=== PATIENT | male | born 1950 | race Caucasian/White ===

== ENCOUNTER → 2016-06-26 | Outpatient (CLI) | payer MEDICARE ==
[~2016-06-26] MED LIST: ALLO300T2 PO; ALPR0.25 PO; AMLO10TA4 PO; ASPI-345 PO; ATOR10TA PO; AZIT250T81 PO; CEFD300C9 PO; CRS350T PO; ERGO400C PO; FLX20C PO; HCT25T PO; LORA1TAB PO; METF500T4; MULT-55 PO; NF-TORA10 PO; NIAC500T9 PO; NS.65NA45; OMEG1CAP61 PO; OMG1KC PO; ONDA4TAB8 PO; ONDAN4ODT PO; OXYC-272 PO; OXYC1TAB87 PO; PRED5SOL7 PO; PRV20T PO; SODI325T PO; SPRN25T PO; TAMS-8 PO; TAMS0.4C2; TICA90TA PO
--- NOTE | 2016-06-26 09:56 | Diagnostic Imaging Report ---
INDICATION: Nontraumatic back pain. COMPARISON: Chest radiograph performed concurrently. FINDINGS: Thoracic spine is normal in alignment. No compression fracture. There are large anterior flowing osteophytes with maintenance of the disc spaces throughout the mid to lower thoracic spine indicative of diffuse idiopathic skeletal hyperostosis (DISH). IMPRESSION: 1. No compression fracture in the thoracic spine. 2. Changes of diffuse idiopathic skeletal hyperostosis (DISH). Dictated by: Dictated on workstation # [id number]
--- NOTE | 2016-06-26 10:04 | Diagnostic Imaging Report ---
INDICATION: Right-sided back pain. COMPARISON: Acute abdominal series of 05/10/2016. FINDINGS: Normal lung volume. No pulmonary mass or consolidation. No pleural effusion or pneumothorax. Cardiac silhouette is normal in size and configuration. Normal pulmonary vasculature. Changes of diffuse idiopathic skeletal hyperostosis in the spine. IMPRESSION: 1. Negative chest radiograph. Dictated by: Dictated on workstation # [id number]
== END ==
LOC: RAD 08:46
PROVIDERS: ATTEND Specialist
DX: M54.5 Low back pain (principal); M48.14 Ankylosing hyperostosis [Forestier], thoracic region
CPT/HCPCS: 71020; 72072

== ENCOUNTER → 2016-07-26 | Outpatient (CLI) | payer MEDICARE | LOC: RAD 12:47 | PROVIDERS: ATTEND Orthopaedic Surgery Foot and Ankle Surgery | DX: M25.572 Pain in left ankle and joints of left foot (principal); M79.672 Pain in left foot | CPT/HCPCS: 73700; 76376 ==

== ENCOUNTER → 2016-08-08 | Outpatient (CLI) | payer MEDICARE | LOC: RAD 08:47 | PROVIDERS: ATTEND Specialist | DX: M85.80 Other specified disorders of bone density and structure, unspecified site (principal); Z13.820 Encounter for screening for osteoporosis | CPT/HCPCS: 77080 ==

== ENCOUNTER 2016-09-22 05:47 | Emergency (ER) | payer MEDICARE ==
[~2016-09-22] VITALS: Ht 190.5 cm; Wt 122.7 kg
[~2016-09-22 05:47] MED LIST changes: -LORA1TAB PO; -TICA90TA PO
--- OUTSIDE RECORDS SUMMARY | 2016-09-22 05:52 | XMS REPORT | Continuity of Care Document ---
Author Author [facility] Organization [facility] Address Unknown Phone Unavailable Care Team Providers Care Link Trainer Maintenance Man Name Role Phone Marizol Barry PCP Unavailable Source Comments Some departments are not documenting in the electronic medical record. If you do not see the information that you expected, contact Release of Information in the Health Information Management department at [phone] for further assistance in locating additional records.[facility] Active Allergies and Adverse Reactions Not on File Current Medications Not on file Active Problems Problem Noted Date Headache 08/04/2007 Abnormality of gait 08/04/2007 Social History Tobacco Use Types Packs/Day Years Used Date Never Assessed Last Filed Vital Signs Vital Sign Reading Time Taken Blood Pressure 140/77 08/04/2007 9:26 AM BUTCHER ALL ROUND Pulse 57 08/04/2007 9:26 AM BUTCHER [employer] ROUND Temperature 36.2 C (97.2 F) 08/04/2007 9:26 AM BUTCHER [employer] ROUND Respiratory Rate - - Height 1.905 m (6' 3") 08/04/2007 9:26 AM BUTCHER [employer] ROUND Weight 117.935 kg (260 lb) 08/04/2007 9:26 AM BUTCHER [employer] ROUND Body Mass Index 32.5 08/04/2007 9:26 AM BUTCHER [employer] ROUND Oxygen Saturation 95% 08/04/2007 9:26 AM BUTCHER [employer] ROUND Plan of Care Health Maintenance Due Date Last Done Comments Physical (Comprehensive) 1957 Exam Pertussis Vaccine 1960 Tetanus Vaccine 1966 Shingles Vaccine 2009 Prevnar/Pneumovax (#1) 2014 Influenza Vaccine 02/21/2017 Colorectal Cancer 07/14/2017 07/14/2007 Screening Hepatitis C Screening Completed 07/15/2007 Results from Last 3 Months Not on file
--- OUTSIDE RECORDS SUMMARY | 2016-09-22 05:53 | XMS REPORT | Continuity of Care Document ---
Author Author [facility] Organization [facility] Address Unknown Phone Unavailable Care Team Providers Care Chef Kitchen Manager Name Role Phone Marizol Barry PCP Unavailable Source Comments Some departments are not documenting in the electronic medical record. If you do not see the information that you expected, contact Release of Information in the Health Information Management department at [phone] for further assistance in locating additional records.[facility] Active Allergies and Adverse Reactions Not on File Current Medications Not on file Active Problems Problem Noted Date Headache 08/04/2007 Abnormality of gait 08/04/2007 Social History Tobacco Use Types Packs/Day Years Used Date Never Assessed Last Filed Vital Signs Vital Sign Reading Time Taken Blood Pressure 140/77 08/04/2007 9:26 AM DATA COLLECTION ASSOCIATE Pulse 57 08/04/2007 9:26 AM DATA COLLECTION ASSOCIATE Temperature 36.2 C (97.2 F) 08/04/2007 9:26 AM DATA COLLECTION ASSOCIATE Respiratory Rate - - Height 1.905 m (6' 3") 08/04/2007 9:26 AM DATA COLLECTION ASSOCIATE Weight 117.935 kg (260 lb) 08/04/2007 9:26 AM DATA COLLECTION ASSOCIATE Body Mass Index 32.5 08/04/2007 9:26 AM DATA COLLECTION ASSOCIATE Oxygen Saturation 95% 08/04/2007 9:26 AM DATA COLLECTION ASSOCIATE Plan of Care Health Maintenance Due Date Last Done Comments Physical (Comprehensive) 1957 Exam Pertussis Vaccine 1960 Tetanus Vaccine 1966 Shingles Vaccine 2009 Prevnar/Pneumovax (#1) 2014 Influenza Vaccine 02/21/2017 Colorectal Cancer 07/14/2017 07/14/2007 Screening Hepatitis C Screening Completed 07/15/2007 Results from Last 3 Months Not on file
[2016-09-22] MEDS ORDERED: TICA90TA PO (06:01)
[2016-09-22] MEDS ORDERED: KETOROLAC 30 MG/ML (TORADOL) 1 ML VIAL IV ONE (06:05)
[2016-09-22 06:11] LABS: BASOPHILS % (AUTO) 1 % (0-2); EOSINOPHILS # (AUTO) 0.5 10^3uL; EOSINOPHILS % (AUTO) 6 % (0-4); MEAN CORPUSCULAR HEMOGLOBIN 28.8 PG (26.0-34.0); MEAN CORPUSCULAR HGB CONC 34.4 g/dL (31.0-37.0); MEAN CORPUSCULAR VOLUME 84 FL (80-100); MEAN PLATELET VOLUME 9.4 FL (6.0-9.5); MONOCYTES # (AUTO) 0.7 X10^3; MONOCYTES % (AUTO) 10 % (3-11); NEUTROPHILS % (AUTO) 55 % (51-67); PLATELET COUNT 242 10^3uL (150-450); WHITE BLOOD COUNT 7.18 10^3uL (4.0-11.0)
[2016-09-22] MEDS ORDERED: SODIUM CHLORIDE FLUSH 10 ML SYR IV PRN (06:15)
[2016-09-22 06:21] LABS: ALBUMIN 4.2 g/dL (3.4-5.0); ALKALINE PHOSPHATASE 109 U/L (38-126); ANION GAP 18.2 MEQ/L (3-15); BUN/CREATININE RATIO 15 (10-20); CALCULATED IONIZED CALCIUM 3.9 mg/dL (3.8-4.6)
--- NOTE | 2016-09-22 06:33 | NUR ---
Pt states that the Toradol has not really helped that much, pt does appear to be much calmer than on arrival, and appears to be more comfortable.
[2016-09-22] MEDS ORDERED: morphine INJ 4 MG/ML 1 ML SYRINGE IV PRN (06:35)
[2016-09-22 06:53] LABS: D-DIMER* < 215 ng/mL (0-500)
--- NOTE | 2016-09-22 07:06 | NUR ---
gave morphine which has not helped pain, appears like spasms, comes and goes, pain a 0 until spasm hits, then it is a 6
[2016-09-22] MEDS ORDERED: ORPHENADRINE 60 MG/2 ML (NORFLEX) AMP IV ONE (07:10)
[2016-09-22] MEDS ORDERED: LORazepam 2 MG/ML (ATIVAN) 1 ML VIAL IV ONE (07:20)
--- NOTE | 2016-09-22 08:09 | Diagnostic Imaging Report ---
INDICATION: Chest pain Comparison: June 26, 2016 Technique: Single frontal radiograph view of the chest dated September 22, 2016. Findings: The cardiac silhouette is within normal limits. No significant pulmonary vascular congestion. Low lung volumes. The lungs are otherwise clear. No pleural effusion. No pneumothorax. No acute osseous abnormality. IMPRESSION: Low lung volumes. Otherwise, unremarkable. Dictated by: Dictated on workstation # [id number]
--- NOTE | 2016-09-22 08:34 | NUR ---
pt resting comfortable
--- NOTE | 2016-09-22 08:54 | NUR ---
mele echols on phone with painting supervisor, copies of ekgs sent to kranthi
[2016-09-22] MEDS ORDERED: LORA1TAB PO (09:04)
[2016-09-22 09:10] VITALS: BP 120/74
== END 2016-09-22 09:17 | disposition home or self-care (01) ==
LOC: ED 05:49
DX: R07.89 Other chest pain (principal)
CPT/HCPCS: 36415; 71010; 80053; 84484; 85025; 85379; 85610; 85730; 93005; 96374; 96375; 99285; J1885; J2060; J2270; J2360; 93010

== ENCOUNTER → 2016-10-03 | Outpatient (CLI) | payer MEDICARE ==
[~2016-10-03] MED LIST changes: +LORA1TAB PO; +TICA90TA PO
--- NOTE | 2016-10-03 13:49 | Diagnostic Imaging Report ---
PROCEDURE: MRI lumbar spine with and without contrast. TECHNIQUE: Multiplanar, multisequence MRI of the lumbar spine was performed with and without contrast. INDICATION: Back pain. COMPARISON: 03/09/2015. FINDINGS: The bone marrow is somewhat inhomogeneous which is similar to the comparison exam. There is no evidence for malignant bone neoplasm or discitis osteomyelitis. L1-L2: Small focal right paracentral protrusion is present into the anterior right thecal sac with slight flattening of the anterior right thecal sac. Small annular tear is present at that region. No foraminal stenosis. The disc shows dehydration change. L2-L3 level: Slight retrolisthesis of L2 on L3. There has been an interval midline laminectomy. The intervertebral disc has a mild diffuse bulge. There is mild narrowing of the lateral aspects of the thecal sac from the facet joints. The severe spinal stenosis which is previously present has significantly improved. Bone marrow signal abnormality is present at the right aspect of the vertebral endplates. The disc does bulge into the inferior aspect of both exit foramina producing stenosis. There is no compression of the L2 nerve roots in the superior exit foramina. The cross-sectional CSF surface area of the thecal sac is approximately 168 mm squared. Previously, it was about 75 mm squared. L3-L4 level: Slight retrolisthesis of L3 on L4 vertebra is present similar to the prior examination. Posterior laminectomy changes are present. There is no significant peridural scar formation. Mild stenosis of the lateral aspects of the thecal sac is present. The central spinal stenosis which was previously present has resolved. Intervertebral disc has mild bulging into the inferior foramina with no compression of the L3 nerve roots in the superior foramina. There is mild encroachment upon the superior right exit foramina. Metal artifact from pedicle screws in L4 vertebral body is present. L4-L5 level: Intervertebral disc has a normal height. Posterior fusion changes are present. There has been no significant change and there is no significant central or lateral stenosis at that level. L5-S1 level: Pedicle screws are seen in L5 and S1 vertebrae. No significant central or lateral stenosis or disc protrusion is identified. The visualized portions of the abdominal aorta are negative. A simple left renal cyst is present. IMPRESSION: 1. Interval decompression of laminectomy at L2-L3 with interval improvement in the spinal stenosis. Interval improvement in spinal stenosis as described. 2. Interval laminectomy at L3-L4 level with interval improvement in the spinal stenosis at that level also. 3. Otherwise no change. Dictated by: Dictated on workstation # [id number]
== END ==
LOC: RAD 09:01
PROVIDERS: ATTEND Family Medicine
DX: M54.5 Low back pain (principal); M48.06 Spinal stenosis, lumbar region; Z98.890 Other specified postprocedural states
CPT/HCPCS: 72158; A9579

== ENCOUNTER → 2016-10-21 | Outpatient (CLI) | payer MEDICARE ==
--- NOTE | 2016-10-21 09:11 | Diagnostic Imaging Report ---
PROCEDURE: CT abdomen and pelvis without contrast. TECHNIQUE: Multiple contiguous axial images were obtained through the abdomen and pelvis without the use of intravenous contrast. INDICATION: Generalized abdominal pain. Right flank pain. COMPARISON: CT abdomen and pelvis without contrast 06/13/2016. FINDINGS: Since the prior exam, there are numerous small calcifications dependently in the bladder. The small nonobstructing calyceal tip renal stones in both kidneys have not appreciably changed. These measure up to 2 mm in the right kidney and 6 mm in the left kidney. There are no ureteral stones. No hydronephrosis. Again seen are the probable benign cyst in the liver and left kidney. There are postoperative changes in the cecum, presumed appendectomy. Lung bases are clear. Scattered arterial calcifications including coronary and aortic. The gallbladder, pancreas, spleen and adrenal glands are negative on this noncontrast exam. There is some moderate amount of stool throughout the colon and rectum. No evidence of bowel obstruction. Enlarged prostate which contains calcifications. Moderate degenerative changes in the visualized thoracolumbar spine. Postoperative changes in the lumbar spine. No free intraperitoneal air or fluid. No lymphadenopathy. Bilateral fat-containing inguinal hernias. IMPRESSION: 1. Several new punctate calcifications in the bladder appear to be layering dependently. Alternatively, these are within the bladder wall. The nonobstructing calyceal tip renal stones in both kidneys are stable. There are no ureteral stones or hydronephrosis. 2. Moderate amount of stool in the colon and rectum may represent a degree of constipation. Dictated by: Dictated on workstation # [id number]
== END ==
LOC: RAD 06:43
PROVIDERS: ATTEND Specialist
DX: N18.3 Chronic kidney disease, stage 3 (moderate) (principal); N20.0 Calculus of kidney; M54.5 Low back pain
CPT/HCPCS: 74176

== ENCOUNTER 2016-11-12 12:01 | Emergency (ER) | payer MEDICARE ==
[~2016-11-12] VITALS: Ht 190.5 cm; Wt 120.0 kg
[2016-11-12] MEDS ORDERED: LIDOCAINE 1% (XYLOCAINE) 20 ML VIAL INJ ONE (12:05)
[2016-11-12] MEDS ORDERED: LIDOCAINE 1% (XYLOCAINE) 20 ML VIAL ONE (12:05)
[2016-11-12 12:21] VITALS: BP 128/77
--- OUTSIDE RECORDS SUMMARY | 2016-11-12 12:57 | XMS REPORT | Continuity of Care Document ---
Author Author [facility] Organization [facility] Address Unknown Phone Unavailable Care Team Providers Care Wool Fleece Grader Name Role Phone Marizol Brary PCP Unavailable Source Comments Some departments are not documenting in the electronic medical record. If you do not see the information that you expected, contact Release of Information in the Health Information Management department at [phone] for further assistance in locating additional records.[facility] Active Allergies and Adverse Reactions Not on File Current Medications Not on file Active Problems Problem Noted Date Headache 08/04/2007 Abnormality of gait 08/04/2007 Social History Tobacco Use Types Packs/Day Years Used Date Never Assessed Last Filed Vital Signs Vital Sign Reading Time Taken Blood Pressure 140/77 08/04/2007 9:26 AM SOFTWARE VERIFICATION ENGINEER Pulse 57 08/04/2007 9:26 AM SOFTWARE VERIFICATION ENGINEER Temperature 36.2 C (97.2 F) 08/04/2007 9:26 AM SOFTWARE VERIFICATION ENGINEER Respiratory Rate - - Height 1.905 m (6' 3") 08/04/2007 9:26 AM SOFTWARE VERIFICATION ENGINEER Weight 117.935 kg (260 lb) 08/04/2007 9:26 AM SOFTWARE VERIFICATION ENGINEER Body Mass Index 32.5 08/04/2007 9:26 AM SOFTWARE VERIFICATION ENGINEER Oxygen Saturation 95% 08/04/2007 9:26 AM SOFTWARE VERIFICATION ENGINEER Plan of Care Health Maintenance Due Date Last Done Comments Physical (Comprehensive) 1957 Exam Pertussis Vaccine 1960 Tetanus Vaccine 1966 Shingles Vaccine 2009 Prevnar/Pneumovax (#1) 2014 Influenza Vaccine 02/21/2017 Colorectal Cancer 07/14/2017 07/14/2007 Screening Hepatitis C Screening Completed 07/15/2007 Results from Last 3 Months Not on file
== END 2016-11-12 13:00 | disposition home or self-care (01) ==
LOC: EDUNIT# 12:01 → ED 12:52
DX: S61.012A Laceration without foreign body of left thumb without damage to nail, initial encounter (principal); W31.89XA Contact with other specified machinery, initial encounter; Y93.89 Activity, other specified; Y92.009 Unspecified place in unspecified non-institutional (private) residence as the place of occurrence of the external cause
CPT/HCPCS: 12001; 99282; 99284